=== PATIENT | female | born 1940 | race African-American/Black ===

== ENCOUNTER 2018-12-05 18:28 | Emergency (ER) | payer OTHER ==
[2018-12-05 18:41] VITALS: TEMP 98.5; BMI 29.0
--- NOTE | 2018-12-05 18:51 | PDOC ---
Attending Attestation - HPI HPI: 12/05/18 19:52 The patient is a 78 year old female, with a significant past medical history of HTN and chronic RLE edema, who presents to the emergency department with, pleuritic left sided chest pain radiating to her left scapula onsetting at 1pm. Patient notes her symptoms has since resolved after taking 81mg of Aspirin. Patient notes doing a significant amount of cleaning yesterday at which time she believes she overexerted herself. She denies any recent palpitations or diaphoresis. She denies recent fevers, chills, headache or dizziness. She denies recent nausea, vomit, diarrhea or constipation. She denies recent dysuria, frequency, urgency or hematuria. Allergies: NKDA - Physicial Exam PE: 12/05/18 19:56 GENERAL: Well-appearing, well-nourished. No apparent distress. HEENT: Normocephalic, atraumatic. PERRL, EOM intact. CARDIOVASCULAR: Normal S1, S2. Regular rate and rhythm. PULMONARY: Clear to auscultation bilaterally. ABDOMEN: Soft, non-distended, non-tender. EXTREMITIES: Right sided chronic pedal anemia. Normal ROM in all four extremities. No gross deformities. SKIN: Warm, dry. No rash NEUROLOGICAL: No focal neurological deficits. <Sergey Nair - Last Filed: 12/05/18 19:56> - Resident Resident Name: UteTemi - ED Attending Attestation I have performed the following: I have examined & evaluated the patient, The case was reviewed & discussed with the resident, I agree w/resident's findings & plan, Exceptions are as noted - Medical Decision Making 12/06/18 00:19 pt did not have any shortness of breath ,diaphoresis, nausea ,vomiting or palpitations. She states the pain is not there when she is still but occurs when she moves ekg is nsr with no signs of ischemia cxr no ptx, no infiltrates, no effusion 12/06/18 00:49 both sets of cardiac enzymes are negative imp atypical chest pain d/c home <Silvia White - Last Filed: 12/06/18 00:50> Attestations - Attestations 12/05/18 19:52 Documentation prepared by Sergey Nair, acting as medical management trainer for Silvia White MD. <Sergey Nair - Last Filed: 12/05/18 19:56>
--- NOTE | 2018-12-05 19:09 | PDOC ---
History of Present Illness - General Chief Complaint: Chest Pain Stated Complaint: CHEST PAIN Time Seen by Provider: 12/05/18 18:42 History Source: Patient Exam Limitations: No Limitations - History of Present Illness Initial Comments: 12/05/18 19:14 This is a 78 yo F with PMH of HTN (on losartan/hctz and coreg), who presets due to cp that started at 1 pm and has since improved. She was in [place] when it started, it was left sided radiating to L scapula, brought on by deep inspiration and alleviated by rest. She took asa 81 and tums at home which alleviated her pain. She has never had this pain before. She reports that she cleaned her apt yesterday and overexerted herself. She denies palpitations, sob , diaphoresis, n/v, dizziness, loc, new edema, orthopnea. denies abd pain, cough , d/c, f/c, dysuria. she has chronic RLE edema. Past History - Past Medical History Allergies/Adverse Reactions: Allergies Allergy/AdvReac Type Severity Reaction Status Date / Time No Known Allergies Allergy Verified 12/05/18 18:41 Home Medications: Ambulatory Orders Carvedilol [Coreg -] 12.5 mg PO BID 12/05/18 Losartan/Hydrochlorothiazide [Losartan-Hctz 100-25 mg Tab] 1 each PO DAILY 12/05 COPD: No HTN: Yes - Immunization History Immunization Up to Date: No - Suicide/Smoking/Psychosocial Hx Smoking History: Never smoked Have you smoked in the past 12 months: No Information on smoking cessation initiated: No Hx Alcohol Use: No Drug/Substance Use Hx: No *Physical Exam - Vital Signs Last Vital Signs Temp Pulse Resp BP Pulse Ox 98.5 F 92 H 16 145/79 100 12/05/18 18:39 12/05/18 18:39 12/05/18 18:39 12/05/18 18:39 12/05/18 18:39 Moderate Sedation - Procedure Monitoring Vital Signs: Procedure Monitoring Vital Signs Temperature 98.5 F 12/05/18 18:39 Pulse Rate 92 H 12/05/18 18:39 Respiratory Rate 16 12/05/18 18:39 Blood Pressure 145/79 12/05/18 18:39 O2 Sat by Pulse Oximetry (%) 100 12/05/18 18:39 ED Treatment Course - LABORATORY CBC & Chemistry Diagram: 12/05/18 19:20 12/05/18 21:23 - ADDITIONAL ORDERS Additional order review: 12/05/18 19:18 CXR NS 121, q waves in inferior leads, no evidence of acs or strain. 12/05/18 19:39 CXR no acute pathology 12/05/18 22:03 cbc, cmp unremarkable, trop negative will obtain one more troponin and dc home 12/06/18 00:49 trop negative x 2, patient is safe for dc home and pcp f/u *DC/Admit/Observation/Transfer Diagnosis at time of Disposition: Atypical chest pain - Discharge Dispostion Disposition: HOME Condition at time of disposition: Good Decision to Admit order: No - Referrals Referrals: María Elena Garcia MD [Staff Physician] - - Patient Instructions Printed Discharge Instructions: DI for Atypical Chest Pain Additional Instructions: you were in the ER for chest pain (atypical). you had a negative workup suggesting that your pain is not due to your heart or lungs but more likely due to your muscles. take motrin as needed for pain. follow up with family doctor withing a week. Please see referral to Dr Cardenas at the [facility] across the street. Return to ED if severe symptoms return - Post Discharge Activity
[2018-12-05 19:26] LABS: BASO % 0.5 % (0-2.0); EOS % 1.8 % (0-4.5); HEMATOCRIT 34.7 % (32.4-45.2); HEMOGLOBIN 11.9 GM/dL (10.7-15.3); LYMPH % 17.7 % (8-40); MCHC 34.2 g/dl (32.0-36.0); MEAN CELL VOLUME 87.8 fl (80-96); MEAN PLT VOLUME 8.1 fl (7.5-11.1); MONO % 6.2 % (3.8-10.2); NEUT % 73.8 % (42.8-82.8); PLATELET COUNT 295 K/MM3 (134-434); RBC 3.95 M/mm3 (3.60-5.2); RDW 14.6 % (11.6-15.6)
[2018-12-05 22:00] LABS: ALBUMIN 3.6 g/dl (3.4-5.0); ALK PHOS 94 U/L (45-117); ANION GAP 9 MMOL/L (8-16); BILIRUBIN,TOTAL 0.5 mg/dL (0.2-1); BLOOD UREA NITROGEN 17 mg/dL (7-18); CALCIUM 8.9 mg/dL (8.5-10.1); CHLORIDE 106 mmol/L (98-107); CO2 26 mmol/L (21-32); CREATININE 0.9 mg/dL (0.55-1.3); GLUCOSE,RANDOM 90 mg/dL (74-106); MAGNESIUM 1.7 mg/dL (1.8-2.4); PHOSPHOROUS 3.4 mg/dL (2.5-4.9); POTASSIUM 3.6 mmol/L (3.5-5.1); SGOT/AST 11 U/L (15-37); SGPT/ALT 15 U/L (13-61); SODIUM 141 mmol/L (136-145); TOT PROT 7.1 g/dl (6.4-8.2)
[2018-12-05] MEDS ORDERED: MAGNESIUM SULF 50% (8.12 MEQ/2 ML-1 GM VIAL) IVPB ONE (22:04)
[2018-12-05] MEDS ORDERED: MAGNESIUM 1GM/D5W - 1 GM/100 ML IVPB IVPB ONE (22:20)
[2018-12-06 01:15] VITALS: BP 140/79; PULSE 89
--- NOTE | 2018-12-06 10:48 | EKG ---
Test Reason : Blood Pressure : / mmHG Vent. Rate : 090 BPM Atrial Rate : 090 BPM P-R Int : 144 ms QRS Dur : 090 ms QT Int : 362 ms P-R-T Axes : 040 -14 061 degrees QTc Int : 442 ms NORMAL SINUS RHYTHM NORMAL ECG WHEN COMPARED WITH ECG OF 19-AUG-2009 17:52, NO SIGNIFICANT CHANGE WAS FOUND Confirmed by DENISE MC MD ([id number]) on 12/06/2018 10:48:05 AM Referred By: Confirmed By:DENISE MC MD
== END 2018-12-06 01:15 | disposition home or self-care (01) ==
LOC: JER 18:28
PROC: 3E033GC Introduction of Other Therapeutic Substance into Peripheral Vein, Percutaneous Approach (ICD-10-PCS; principal; 2018-12-05)
DX: R07.89 Other chest pain (principal); I10 Essential (primary) hypertension; R60.0 Localized edema
CPT/HCPCS: 36415; 71045-TC-FY; 80053; 82550; 83735; 84100; 84484; 85025; 93005; 93010; 96374; 99283-25

== ENCOUNTER 2021-03-10 06:18 | Inpatient (IN) | payer OTHER ==
[2021-03-10 08:33] LABS: BASO % 0.7 % (0-2.0); HEMATOCRIT 32.6 % (32.4-45.2); HEMOGLOBIN 10.8 GM/dL (10.7-15.3); MCHC 33.1 g/dl (32.0-36.0); MEAN CELL VOLUME 87.5 fl (80-96); MEAN PLT VOLUME 7.7 fl (7.5-11.1); MONO % 4.7 % (3.8-10.2); NEUT % 66.6 % (42.8-82.8); PLATELET COUNT 319 K/MM3 (134-434); RBC 3.73 M/mm3 (3.60-5.2); RDW 14.4 % (11.6-15.6); WHITE BLOOD COUNT 6.4 K/mm3 (4.0-10.0)
[2021-03-10 08:40] LABS: INR 1.07 (0.83-1.09); PROTHROMBIN TIME (PATIENT) 13.1 SEC (9.7-13.0)
[2021-03-10 08:51] LABS: ALBUMIN 3.3 g/dl (3.4-5.0); BLOOD UREA NITROGEN 24.8 mg/dL (7-18); CALCIUM 8.7 mg/dL (8.5-10.1)
[2021-03-10 08:55] LABS: CREATININE 0.8 mg/dL (0.55-1.3)
[2021-03-10 08:57] LABS: BILIRUBIN,TOTAL 0.4 mg/dL (0.2-1); TOT PROT 6.8 g/dl (6.4-8.2)
[2021-03-11] MEDS ORDERED: PANTOPRAZOLE SODIUM 40 MG VIAL IVPUSH ONE (03:15)
[2021-03-11 03:48] LABS: HEMATOCRIT 30.8 % (32.4-45.2); HEMOGLOBIN 10.1 GM/dL (10.7-15.3); MCH 28.9 pg (25.7-33.7); MCHC 32.9 g/dl (32.0-36.0); MEAN PLT VOLUME 7.8 fl (7.5-11.1); PLATELET COUNT 308 K/MM3 (134-434); RDW 14.6 % (11.6-15.6); WHITE BLOOD COUNT 6.6 K/mm3 (4.0-10.0)
[2021-03-11] MEDS: SODIUM CHLORIDE 0.45% 1,000 ML IV SCH ×2 (03:50→22:41)
[2021-03-11 08:05] LABS: CALCIUM 8.8 mg/dL (8.5-10.1)
[2021-03-11 08:06] LABS: ALBUMIN 3.3 g/dl (3.4-5.0); BLOOD UREA NITROGEN 18.9 mg/dL (7-18); MAGNESIUM 2.1 mg/dL (1.8-2.4)
[2021-03-11 08:09] LABS: CREATININE 0.8 mg/dL (0.55-1.3)
[2021-03-11 08:11] LABS: PHOSPHOROUS 3.4 mg/dL (2.5-4.9)
[2021-03-11 08:12] LABS: BILIRUBIN,TOTAL 0.4 mg/dL (0.2-1); TOT PROT 6.4 g/dl (6.4-8.2)
[2021-03-11 08:24] LABS: BASO % 0.2 % (0-2.0); EOS % 2.3 % (0-4.5); HEMATOCRIT 32.6 % (32.4-45.2); HEMOGLOBIN 10.6 GM/dL (10.7-15.3); LYMPH % 31.2 % (8-40); MCH 28.7 pg (25.7-33.7); MCHC 32.6 g/dl (32.0-36.0); MEAN CELL VOLUME 88.1 fl (80-96); MONO % 4.5 % (3.8-10.2); NEUT % 61.8 % (42.8-82.8); RBC 3.69 M/mm3 (3.60-5.2); WHITE BLOOD COUNT 6.8 K/mm3 (4.0-10.0)
[2021-03-11] MEDS: CARVEDILOL 12.5 MG TABLET (FP) PO SCH ×2 (09:58→22:37)
[2021-03-11] MEDS ORDERED: PANTOPRAZOLE SODIUM 40 MG VIAL IVPUSH SCH (10:00)
[2021-03-11 11:05] LABS: PLATELET COUNT 287 K/MM3 (134-434)
[2021-03-11 11:31] LABS: HEMATOCRIT 31.8 % (32.4-45.2); HEMOGLOBIN 10.4 GM/dL (10.7-15.3); MCH 28.8 pg (25.7-33.7); MCHC 32.6 g/dl (32.0-36.0); MEAN CELL VOLUME 88.2 fl (80-96); MEAN PLT VOLUME 7.6 fl (7.5-11.1); PLATELET COUNT 301 K/MM3 (134-434); RBC 3.61 M/mm3 (3.60-5.2); RDW 14.9 % (11.6-15.6); WHITE BLOOD COUNT 8.6 K/mm3 (4.0-10.0)
[2021-03-11] MEDS ORDERED: BISACODYL 5 MG TABLET.DR (FP) PO ONE (16:00)
[2021-03-11] MEDS ORDERED: PEG 3350/NA SULF BICARB CL/KCL 4000 ML SOLN.RECON PO ONE (17:00)
[2021-03-11 19:21] LABS: HEMATOCRIT 30.9 % (32.4-45.2); HEMOGLOBIN 10.1 GM/dL (10.7-15.3); MCH 28.9 pg (25.7-33.7); MCHC 32.8 g/dl (32.0-36.0); MEAN PLT VOLUME 7.5 fl (7.5-11.1); PLATELET COUNT 322 K/MM3 (134-434); RBC 3.51 M/mm3 (3.60-5.2); RDW 14.7 % (11.6-15.6)
[2021-03-12 08:01] LABS: MCHC 33.4 g/dl (32.0-36.0); MEAN CELL VOLUME 86.9 fl (80-96); MEAN PLT VOLUME 7.6 fl (7.5-11.1); PLATELET COUNT 318 K/MM3 (134-434); RDW 14.8 % (11.6-15.6); WHITE BLOOD COUNT 8.4 K/mm3 (4.0-10.0)
[2021-03-12 08:31] LABS: ALBUMIN 3.6 g/dl (3.4-5.0); CALCIUM 8.5 mg/dL (8.5-10.1)
[2021-03-12 08:34] LABS: BILIRUBIN,TOTAL 0.6 mg/dL (0.2-1); CREATININE 0.8 mg/dL (0.55-1.3); TOT PROT 7.2 g/dl (6.4-8.2)
[2021-03-12] MEDS: PANTOPRAZOLE 40 MG TABLET PO SCH (09:29)
[2021-03-12] MEDS: KCL 10 MEQ IVPB 10 MEQ/100 ML INFUS.BAG IVPB SCH ×3 (09:29→15:02)
[2021-03-12] MEDS: CARVEDILOL 12.5 MG TABLET (FP) PO SCH ×2 (09:29→21:54)
[2021-03-12] MEDS ORDERED: SODIUM CHLORIDE 0.9%/KCL 20 MEQ/1,000 ML INFUS.BAG IV SCH (12:30)
[2021-03-13 08:03] LABS: BASO % 0.3 % (0-2.0); EOS % 2.2 % (0-4.5); HEMATOCRIT 27.4 % (32.4-45.2); HEMOGLOBIN 9.1 GM/dL (10.7-15.3); MCH 29.2 pg (25.7-33.7); MCHC 33.3 g/dl (32.0-36.0); MEAN CELL VOLUME 87.7 fl (80-96); MEAN PLT VOLUME 7.9 fl (7.5-11.1); MONO % 3.6 % (3.8-10.2); NEUT % 61.9 % (42.8-82.8); PLATELET COUNT 276 K/MM3 (134-434); RBC 3.12 M/mm3 (3.60-5.2); RDW 14.7 % (11.6-15.6); WHITE BLOOD COUNT 7.5 K/mm3 (4.0-10.0)
[2021-03-13 08:51] LABS: ALBUMIN 3.2 g/dl (3.4-5.0); BLOOD UREA NITROGEN 10.2 mg/dL (7-18); CALCIUM 7.9 mg/dL (8.5-10.1); MAGNESIUM 1.8 mg/dL (1.8-2.4)
[2021-03-13 08:52] LABS: BILIRUBIN,TOTAL 0.3 mg/dL (0.2-1); TOT PROT 6.2 g/dl (6.4-8.2)
[2021-03-13 08:54] LABS: CREATININE 0.8 mg/dL (0.55-1.3); PHOSPHOROUS 2.9 mg/dL (2.5-4.9)
[2021-03-13] MEDS: CARVEDILOL 12.5 MG TABLET (FP) PO SCH (09:27)
[2021-03-13] MEDS: PANTOPRAZOLE 40 MG TABLET PO SCH (09:28)
[2021-03-13] MEDS ORDERED: POTASSIUM CHLORIDE ORAL LIQUID 20 MEQ/15 ML PO ONE (13:12)
[2021-03-13 16:46] VITALS: BP 133/69; PULSE 64; TEMP 98.8
== END 2021-03-13 18:11 | disposition home or self-care (01) | DRG 379 ==
LOC: JER 06:18 → JERBED 10:45 → J7W 16:24
PROVIDERS: ADMIT Internal Medicine; ATTEND Internal Medicine
PROC: 0DJD8ZZ Inspection of Lower Intestinal Tract, Via Natural or Artificial Opening Endoscopic (ICD-10-PCS; principal; 2021-03-12 08:11)
DX: K57.91 Diverticulosis of intestine, part unspecified, without perforation or abscess with bleeding (principal); D50.0 Iron deficiency anemia secondary to blood loss (chronic); K62.5 Hemorrhage of anus and rectum; I10 Essential (primary) hypertension; E86.9 Volume depletion, unspecified; R42 Dizziness and giddiness
CPT/HCPCS: 36415; 74177-TC; 80053; 82272; 83735; 84100; 85025; 85027; 85610; 85730; 86850; 86900; 86901; 93005; 93010; 97116-GP; 97161-GP; 99285-25; C9803; U0003; U0005

== ENCOUNTER 2023-05-18 06:45 | Inpatient (IN) | payer OTHER ==
[2023-05-18] MEDS ORDERED: LIDOCAINE 5% TOPICAL PATCH TP ONE (08:14)
[2023-05-18] MEDS ORDERED: ACETAMINOPHEN 1000 MG/100 ML BAG IVPB ONE (08:15)
[2023-05-18] MEDS ORDERED: LIDOCAINE 5% TOPICAL PATCH ONE (08:19)
[2023-05-18] MEDS ORDERED: ACETAMINOPHEN INJECTION 100 ML IVPB ONE (08:19)
[2023-05-18 08:30] LABS: BASO % 0.3 % (0-2.0); HEMATOCRIT 37.4 % (32.4-45.2); HEMOGLOBIN 12.2 GM/dL (10.7-15.3); LYMPH % 9.8 % (8-40); MCH 28.3 pg (25.7-33.7); MCHC 32.5 g/dl (32.0-36.0); MEAN CELL VOLUME 87.1 fl (80-96); MEAN PLT VOLUME 8.3 fl (7.5-11.1); MONO % 3.6 % (3.8-10.2); NEUT % 86.3 % (42.8-82.8); PLATELET COUNT 362 10^3/uL (134-434); RBC 4.29 M/mm3 (3.60-5.2); RDW 14.4 % (11.6-15.6); WHITE BLOOD COUNT 7.2 K/mm3 (4.0-10.0)
[2023-05-18 08:37] LABS: INR 1.17 (0.83-1.09); PROTHROMBIN TIME (PATIENT) 13.6 SEC (9.7-13.0)
[2023-05-18 08:40] LABS: ACTIVATED PTT 30.8 SECONDS (25.2-36.5)
[2023-05-18 09:01] LABS: POTASSIUM 4.7 mmol/L (3.5-5.1)
[2023-05-18 09:06] LABS: ALBUMIN 3.5 g/dl (3.4-5.0); CALCIUM 9.4 mg/dL (8.5-10.1)
[2023-05-18 09:08] LABS: BLOOD UREA NITROGEN 16.4 mg/dL (7-18)
[2023-05-18 09:10] LABS: CREATININE 0.9 mg/dL (0.55-1.3)
[2023-05-18 09:11] LABS: TOT PROT 7.5 g/dl (6.4-8.2)
[2023-05-18 09:12] LABS: BILIRUBIN,TOTAL 1.2 mg/dL (0.2-1)
[2023-05-18] MEDS ORDERED: KETOROLAC TROMETHAMINE 15 MG/ML VIAL IVPUSH ONE (09:38)
[2023-05-18] MEDS ORDERED: KETOROLAC TROMETHAMINE 15 MG/ML VIAL ONE (09:41)
[2023-05-18 17:00] VITALS: BMI 28.8
[2023-05-18] MEDS ORDERED: LIDOCAINE PATCH REMOVAL MC ONE (22:00)
[2023-05-19 08:05] LABS: HEMATOCRIT 33.8 % (32.4-45.2); HEMOGLOBIN 11.2 GM/dL (10.7-15.3); MCH 28.4 pg (25.7-33.7); MCHC 33.2 g/dl (32.0-36.0); MEAN CELL VOLUME 85.4 fl (80-96); MEAN PLT VOLUME 7.8 fl (7.5-11.1); PLATELET COUNT 332 10^3/uL (134-434); RBC 3.95 M/mm3 (3.60-5.2); RDW 14.8 % (11.6-15.6); WHITE BLOOD COUNT 6.8 K/mm3 (4.0-10.0)
[2023-05-19 08:14] LABS: POTASSIUM 3.7 mmol/L (3.5-5.1)
[2023-05-19 08:23] LABS: ALBUMIN 3.1 g/dl (3.4-5.0); CALCIUM 8.8 mg/dL (8.5-10.1)
[2023-05-19 08:27] LABS: CREATININE 0.7 mg/dL (0.55-1.3)
[2023-05-19 08:28] LABS: BILIRUBIN,TOTAL 0.7 mg/dL (0.2-1); TOT PROT 6.7 g/dl (6.4-8.2)
[2023-05-19 09:47] LABS: ANISOCYTOSIS 1+; MACROCYTOSIS 0
[2023-05-19] MEDS: LOSARTAN POTASSIUM 50 MG TABLET PO SCH (10:30)
[2023-05-19] MEDS: CARVEDILOL 12.5 MG TABLET (FP) PO SCH ×2 (10:30→22:12)
[2023-05-19] MEDS: PANTOPRAZOLE 40 MG TABLET PO SCH (10:30)
[2023-05-19] MEDS: ENOXAPARIN NA (PORCINE) 40 MG/0.4 ML DISP.SYRIN SQ SCH (10:30)
[2023-05-19] MEDS: POLYETHYLENE GLYCOL (HEALTHYLAX) 3350 17 GM PACKET PO SCH ×2 (10:30)
[2023-05-19] MEDS: HYDROCHLOROTHIAZIDE 25 MG TABLET (FP) PO SCH (10:30)
[2023-05-19 10:38] LABS: CHOLESTEROL 140 mg/dL (50-200); HDL CHOLESTEROL 48 mg/dL (40-60); LDL CHOLESTEROL (ONLY DFH) 82 mg/dl (5-100)
[2023-05-19 10:58] LABS: N-TERMINAL BNP 214.6 pg/ml (5-450)
[2023-05-19] MEDS ORDERED: CHLORTHALIDONE 25 MG TABLET PO SCH (11:15)
[2023-05-19 21:40] LABS: EPI CELLS 17 /uL (0-25.1); HYALINE CASTS 0 /uL (0-3.1); PH,URINE 5.5 (5.0-8.0); URINE APPEARANCE CLEAR; URINE BACTERIA 75 /uL (0-1359); URINE BILIRUBIN NEGATIVE (NEGATIVE); URINE COLOR YELLOW; URINE GLUCOSE (UA) NEGATIVE (NEGATIVE); URINE KETONE NEGATIVE (NEGATIVE); URINE LEUK ESTERASE 2+ (NEGATIVE); URINE NITRITE NEGATIVE (NEGATIVE); URINE PROTEIN NEGATIVE (NEGATIVE); URINE RBC 7 /uL (0-23.9); URINE UROBILINOGEN 0.2 mg/dL (0.2-1.0); URINE WBC 44 /uL (0-25.8)
[2023-05-19] MEDS: ATORVASTATIN CA 20 MG TABLET (FP) PO SCH (22:12)
[2023-05-19] MEDS: CELECOXIB 200 MG CAPSULE PO SCH (22:19)
[2023-05-20] MEDS: LOSARTAN POTASSIUM 50 MG TABLET PO SCH (10:15)
[2023-05-20] MEDS: HYDROCHLOROTHIAZIDE 25 MG TABLET (FP) PO SCH (10:15)
[2023-05-20] MEDS: PANTOPRAZOLE 40 MG TABLET PO SCH (10:15)
[2023-05-20] MEDS: POLYETHYLENE GLYCOL (HEALTHYLAX) 3350 17 GM PACKET PO SCH ×2 (10:16→10:27)
[2023-05-20] MEDS: CELECOXIB 200 MG CAPSULE PO SCH ×2 (10:16→21:15)
[2023-05-20] MEDS: CARVEDILOL 12.5 MG TABLET (FP) PO SCH ×2 (10:16→21:15)
[2023-05-20] MEDS: ENOXAPARIN NA (PORCINE) 40 MG/0.4 ML DISP.SYRIN SQ SCH (10:16)
[2023-05-20] MEDS: ATORVASTATIN CA 20 MG TABLET (FP) PO SCH (21:15)
[2023-05-21] MEDS: ENOXAPARIN NA (PORCINE) 40 MG/0.4 ML DISP.SYRIN SQ SCH (09:12)
[2023-05-21] MEDS: POLYETHYLENE GLYCOL (HEALTHYLAX) 3350 17 GM PACKET PO SCH (09:13)
[2023-05-21] MEDS: HYDROCHLOROTHIAZIDE 25 MG TABLET (FP) PO SCH (09:13)
[2023-05-21] MEDS: LOSARTAN POTASSIUM 50 MG TABLET PO SCH (09:13)
[2023-05-21] MEDS: CELECOXIB 200 MG CAPSULE PO SCH (09:13)
[2023-05-21] MEDS: CARVEDILOL 12.5 MG TABLET (FP) PO SCH ×2 (09:13→22:07)
[2023-05-21] MEDS: PANTOPRAZOLE 40 MG TABLET PO SCH (09:13)
[2023-05-21] MEDS: ATORVASTATIN CA 20 MG TABLET (FP) PO SCH (22:07)
[2023-05-22 02:44] VITALS: RESP 18
[2023-05-22] MEDS: POLYETHYLENE GLYCOL (HEALTHYLAX) 3350 17 GM PACKET PO SCH (10:46)
[2023-05-22] MEDS: HYDROCHLOROTHIAZIDE 25 MG TABLET (FP) PO SCH (10:47)
[2023-05-22] MEDS: LOSARTAN POTASSIUM 50 MG TABLET PO SCH (10:47)
[2023-05-22] MEDS: ENOXAPARIN NA (PORCINE) 40 MG/0.4 ML DISP.SYRIN SQ SCH (10:47)
[2023-05-22] MEDS: CARVEDILOL 12.5 MG TABLET (FP) PO SCH (10:47)
[2023-05-22] MEDS: PANTOPRAZOLE 40 MG TABLET PO SCH (10:47)
[2023-05-22 15:34] VITALS: BP 142/79; PULSE 65; TEMP 97.7
== END 2023-05-22 16:15 | disposition home or self-care (01) | DRG 93 ==
LOC: JER 06:45 → OBSVTOIN 10:28 → JERBED 10:28 → J4W 15:57
PROVIDERS: ADMIT Internal Medicine; ATTEND Internal Medicine
DX: Q28.2 Arteriovenous malformation of cerebral vessels (principal); M06.9 Rheumatoid arthritis, unspecified; I10 Essential (primary) hypertension; K57.90 Diverticulosis of intestine, part unspecified, without perforation or abscess without bleeding; E78.5 Hyperlipidemia, unspecified; D64.9 Anemia, unspecified; M48.07 Spinal stenosis, lumbosacral region; M51.16 Intervertebral disc disorders with radiculopathy, lumbar region; M48.061 Spinal stenosis, lumbar region without neurogenic claudication; M51.37 Other intervertebral disc degeneration, lumbosacral region; R29.898 Other symptoms and signs involving the musculoskeletal system
CPT/HCPCS: 36415; 70450-TC; 70551-TC; 72131-TC; 72148-TC; 72170-TC-FY; 73502-TC-RT-FY; 80053; 80061; 81003; 82550; 82553; 82962; 83036; 83880; 84443; 84484; 85025; 85610; 85730; 86850; 86900; 86901; 93005; 93010; 93306-TC; 93880-TC; 97116-GP; 97161-GP; 99285-25